=== PATIENT | male | born 1955 | race Caucasian/White ===

== ENCOUNTER 2016-11-11 15:23 | Emergency (ER) | payer OTHER ==
[~2016-11-11] VITALS: Ht 182.9 cm; Wt 68.0 kg
[~2016-11-11 15:23] MED LIST: ADULT LOW DOSE81 MG PO; CIPROFLOXACIN500 M1 PO; FLAGYL500 MG PO; LORTAB 5 MG/5001 TA1 PO; NEXIUM40 MG PO; NOHOMEMEDICATIONS; NORCO 5-325 TA1 EACH PO; ULTRAM 50MG TAB50 MG PO; ZOFRAN ODT4 MG PO
[2016-11-11 15:25] VITALS: BP 133/85
[2016-11-11] MEDS ORDERED: PREDNISONE 20 M20 MG PO (15:47)
[2016-11-11] MEDS ORDERED: CORTIZONE-1028 G1 TP (15:47)
== END 2016-11-11 16:18 | disposition home or self-care (01) ==
LOC: ER 15:23
DX: L25.9 Unspecified contact dermatitis, unspecified cause (principal); K21.9 Gastro-esophageal reflux disease without esophagitis; Z88.0 Allergy status to penicillin; Z88.5 Allergy status to narcotic agent; F17.210 Nicotine dependence, cigarettes, uncomplicated